=== PATIENT | female | born 1990 | race Two or more races ===

== ENCOUNTER 2024-01-27 22:19 | Emergency (ER) | payer MEDICAID, OTHER ==
[~2024-01-27] VITALS: Ht 162.6 cm; Wt 63.5 kg
[2024-01-27 23:08] VITALS: PULSE 88; RESP 13; TEMP 98.4; O2SAT 98
[2024-01-28] MEDS ORDERED: MORPHINE SULFATE 4 MG/ML SYR/VIAL ONE (00:18)
[2024-01-28] MEDS: MORPHINE SULFATE 4 MG/ML SYR/VIAL IV ONE (00:25)
[2024-01-28] MEDS ORDERED: IOHEXOL 350 MG/ML 100ML IJ ONE (00:40)
[2024-01-28 01:08] LABS: Urine Bacteria FEW /hpf (None Seen); Urine Blood Negative /uL (Negative); Urine Clarity Clear (Clear); Urine Color Light-Yellow (Yellow); Urine Protein, UAD Negative (Negative); Urine Specific Gravity > 1.050 (1.001-1.035); Urine Urobilinogen Normal (Negative); Urine WBC 2 /hpf (0 - 5)
[2024-01-28 02:05] VITALS: BP 114/57; PULSE 88; RESP 20; O2SAT 98
== END 2024-01-28 02:08 | disposition home or self-care (01) ==
LOC: EDBD 22:19 → ER 22:19
DX: S00.12XA Contusion of left eyelid and periocular area, initial encounter (principal); M79.18 Myalgia, other site; E78.5 Hyperlipidemia, unspecified; Z90.710 Acquired absence of both cervix and uterus; Y04.0XXA Assault by unarmed brawl or fight, initial encounter; Y93.89 Activity, other specified; Y92.009 Unspecified place in unspecified non-institutional (private) residence as the place of occurrence of the external cause; Y99.8 Other external cause status
CPT/HCPCS: 70450; 70486; 72125; 73080; 74177; 81001; 96374; 99285; J2270; Q9967